=== PATIENT | male | born 2005 | race Caucasian/White ===

== ENCOUNTER 2024-02-22 08:03 | Outpatient (CLI) | payer OTHER, SELFPAY ==
--- NOTE | 2024-03-01 17:16 | WPDPFTINT ---
PFT Procedure Performed PFT Procedure Performed Plethysmography (Lung Vol) Diffusing Cap (DLCO) Flow Vol Loop Spirometry w/o Bronchodil PFT Interpretation This is a pulmonary function test with spirometry, plethysmography and diffusing capacity. The test was performed and results interpreted in accordance with the 2019 and 2005 ATS/ERS Task Force guidelines respectively using the Global Lung Function Initiative-2012 reference equations. Patient demonstrated good effort and cooperation. Reproducibility criteria were met. The quality of the spirometry maneuver was Grade B. Of note, Global Lung Function Initiative-2012 reference equations for the upper and lower limit of normal is not provided for the lung volume given the patient's age of 18. Findings: Spirometry: The contour the inspiratory and expiratory flow tracing are normal. The FVC is 6.20 L, 122% predicted. The functional residual capacity is 4.86 L, 112% predicted. The FEV1: FVC ratio 78%. Plethysmography: The total lung capacity is 6.85 L, 133% predicted. The functional residual capacity is 3.68 L, 152% predicted. The residual volume is 0.65 L, 61% predicted. Diffusing capacity: The diffusing capacity unadjusted for hemoglobin and carboxyhemoglobin is 38.5, 104% predicted. The diffusing capacity adjusted for alveolar volume is 4.87, 87% predicted. Impression: The spirometry is normal without evidence of an obstructive abnormality. Although the upper and lower limit of normal ranges are not provided due to the patient's age of 18 for the lung volumes, it appears the total lung capacity and functional residual capacity are increased with a decreased residual volume. This is an abnormal but nonspecific lung volume pattern. The diffusing capacity is normal. There are no prior studies for comparison
== END 2024-02-22 08:04 | disposition home or self-care (01) ==
LOC: ANHPFT 08:06
PROVIDERS: PCP Nurse Practitioner Family; Visit Provider Nurse Practitioner Family
DX: J98.8 Other specified respiratory disorders (principal); Z87.09 Personal history of other diseases of the respiratory system
CPT/HCPCS: 94375; 94726; 94729

== ENCOUNTER 2024-03-19 08:04 | Outpatient (CLI) | payer OTHER, SELFPAY ==
--- NOTE | 2024-03-19 13:17 | WPDPFTINT ---
PFT Procedure Performed PFT Procedure Performed Spirometry with Pre/Post Bronchodilator Plethysmography (Lung Vol) Diffusing Cap (DLCO) Flow Vol Loop PFT Interpretation This is a pulmonary function test with pre and post-bronchodilator spirometry, plethysmography and diffusing capacity. The test was performed and results interpreted in accordance with the 2019 and 2005 ATS/ERS Task Force guidelines respectively using the Global Lung Function Initiative-2012 reference equations. Patient demonstrated good effort and cooperation. Reproducibility criteria were met. The quality of the pre bronchodilator spirometry maneuver was Grade A and post bronchodilator spirometry maneuver was Grade A. Findings: Spirometry: The contour the inspiratory and expiratory flow tracing are normal. The pre bronchodilator FVC is 6.18 L, 122% predicted. The pre bronchodilator FEV1 is 5.03 L, 116% predicted. The pre bronchodilator FEV1: FVC ratio is 81%. The post bronchodilator FVC is 6.16 L, representing no change. The post bronchodilator FEV1 is 5.25 L, representing a 4% increase. The post bronchodilator FEV1: FVC ratio is 85%. Puffs is Lyudmila feet: The total lung capacity is 6.88 L, 134% predicted. The functional residual capacity is 3.08 L, 127% predicted. The residual volume is 0.70 L, 66% predicted. Diffusing capacity: The diffusing capacity unadjusted for hemoglobin and carboxyhemoglobin is 35.7, 97% predicted. The diffusing capacity adjusted for alveolar volume is 5.16, 92% predicted. In comparison to previous pulmonary function testing on 02/22/2024 in which only pre bronchodilator spirometry was performed, the pre bronchodilator FVC is unchanged from 6.73 L to 6.18 L. The pre bronchodilator FEV1 is unchanged from 4.86 L to 5.03 L. The total lung capacity is unchanged from 7.60 L to 6.88 L. The functional residual capacity is decreased from 3.79 L to 3.08 L. The residual volume is unchanged from 0.87 L to 0.70 L. The diffusing capacity unadjusted for hemoglobin and carboxyhemoglobin is unchanged from 38.5 to 35.7. The diffusing capacity adjusted for alveolar volume is unchanged from 4.87 to 5.16. Impression: The spirometry is normal without evidence of an obstructive abnormality.? There is no significant improvement after inhaling a single dose of albuterol. Although the upper and lower limit of normal ranges are not provided? due to the patient's age of 18 for the lung volumes, it appears the total lung capacity and functional residual capacity are increased with a decreased residual volume.? This is an abnormal but nonspecific lung volume pattern. The diffusing capacity is normal. In comparison to previous pulmonary function testing on 02/22/2024 there has been a greater than anticipated time dependent decrease in the functional residual capacity with no significant change in the FVC, FEV1, total lung capacity, residual volume, or diffusing capacity. Clinical correlation is recommended.
== END 2024-03-19 08:05 | disposition home or self-care (01) ==
PROVIDERS: PCP Nurse Practitioner Family; Visit Provider Nurse Practitioner Family
DX: Z87.09 Personal history of other diseases of the respiratory system (principal)
CPT/HCPCS: 94060; 94726; 94729